=== PATIENT | female | born 1935 | race Caucasian/White ===

== ENCOUNTER 2020-06-06 14:38 | Emergency (ER) | payer MEDICARE, OTHER ==
[2020-06-06 18:36] LABS: HEMOGLOBIN 14.9 gm/dl (12.3-15.3); RED BLOOD COUNT 5.06 M/UL (4.00-5.10); WHITE BLOOD COUNT 6.8 K/UL (4.5-11.0)
[2020-06-06 19:05] LABS: BUN/CREATININE RATIO 27 (0-10)
[2020-06-06] MEDS ORDERED: HYDROCODON-ACE1 EAC4 PO (20:40)
== END 2020-06-06 22:15 | disposition home or self-care (01) ==
LOC: ER1 14:38
PROVIDERS: Emergency Medicine
DX: M25.512 Pain in left shoulder (principal); S42.352A Displaced comminuted fracture of shaft of humerus, left arm, initial encounter for closed fracture; I10 Essential (primary) hypertension; W01.0XXA Fall on same level from slipping, tripping and stumbling without subsequent striking against object, initial encounter
CPT/HCPCS: 29105; 36415; 70450; 71045; 72125; 73030; 80053; 82550; 82553; 83874; 84484; 85025; 85610; 85730; 96374; 96375; 96376; 99284; J2270; J2405